=== PATIENT | male | born 1985 | race African-American/Black ===

== ENCOUNTER 2016-10-05 21:18 | Emergency (ER) | payer SELFPAY | END 2016-10-05 21:43 | disposition home or self-care (01) | LOC: BURERS 21:18 | DX: M54.5 Low back pain (principal) | CPT/HCPCS: 99283 ==

== ENCOUNTER 2022-05-02 17:08 | Emergency (ER) | payer BC, SELFPAY | END 2022-05-02 19:25 | disposition home or self-care (01) | LOC: BURERS 17:08 | DX: S43.401A Unspecified sprain of right shoulder joint, initial encounter (principal); I10 Essential (primary) hypertension; V80.010A Animal-rider injured by fall from or being thrown from horse in noncollision accident, initial encounter | CPT/HCPCS: 70450 ==